=== PATIENT | male | born 1970 | race Two or more races ===

== ENCOUNTER 2018-07-16 22:27 | Emergency (ER) | payer OTHER ==
--- NOTE | 2018-07-16 22:50 | EDPHY ---
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 Patient has been having pain in his right neck with swelling which occurred over the last 12-18 hours. He is not having any difficulty swelling. Trach was last changed about 3 weeks ago by his physician in [place]. No fevers or chills. No cough. Is complaining some swelling in his right lateral anterior neck as well. He did take some Aleve about an hour ago. ROS: 10 systems were reviewed and were negative except those elements noted in the HPI. PMH: Recurrent epiglottis swelling, tracheostomy Social History: Positive smoking, no alcohol, Family History: non-contributory Physical Exam: Gen: Awake, Alert, No Distress HEENT: Nose: no rhinorrhea Eyes: PERRLA, EOMI Mouth: Moist mucosa Neck: Tracheostomy site is not erythematous her have any discharge. There is some mild right neck swelling along his sternocleidomastoid without fluctuance or mass. There is no erythema. No significant lymphadenopathy. Chest: nontender, lungs clear to auscultation Heart: S1, S2 normal, no murmur Abd: Soft, non-tender, no guarding Back: no CVA tenderness, no midline tenderness Ext: no edema, non-tender Skin: no rash Neuro: CN II-XII intact, Sensation grossly intact, Strength 5/5 in bilateral upper and lower extremities - Personal History Current Tetanus/Diphtheria Vaccine: Yes Current Tetanus Diphtheria and Acellular Pertussis (TDAP): Yes - Medical/Surgical History Hx Asthma: No Hx Chronic Respiratory Disease: No Hx Diabetes: No Hx Cardiac Disease: No Hx Renal Disease: No Hx Cirrhosis: No Hx Alcoholism: No Hx HIV/AIDS: No Hx Splenectomy or Spleen Trauma: No Other PMH: 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 hernia repair. finger tip amuputations - Social History Smoking Status: Current some day smoker Constitutional: Initial Vital Signs Temperature (C) 36.8 C 07/16/18 22:30 Heart Rate 94 07/16/18 22:30 Respiratory Rate 18 07/16/18 22:30 Blood Pressure 138/98 H 07/16/18 22:30 O2 Sat (%) 93 07/16/18 22:30 O2 Delivery Mode Room Air Allergies/Adverse Reactions: ibuprofen [From Motrin] Allergy (Verified 07/16/18 22:39) morphine Allergy (Verified 07/16/18 22:39) Home Medications: Medication Instructions Recorded Aleve 07/16/18 Medical Decision Making - Diagnostics Imaging Results: Imaging Impressions Neck CT 07/16/18 22:47 Impression: No localized inflammatory process or explanation for right-sided pain. Findings discussed with Emergency Department physician, Hernan Melchor MD at 07/16/2018 23:45. ED Course/Re-evaluation: CT scan soft tissue of the neck is negative for any acute process per Dr. Harris. Patient does have a difficult examination but no significant swelling or mass on exam. Patient is improved after some fentanyl. Will discharge with follow-up with his ear nose and throat physician for further evaluation. - Data Points Laboratory Results: Laboratory Results 07/16/18 23:00 07/16/18 07/16/18 23:02 23:00 WBC 9.61 10^3/uL H 10^3/uL (3.80-9.50) RBC 5.35 10^6/uL 10^6/uL (4.40-6.38) Hgb 16.7 g/dL g/dL (13.7-17.5) POC Hgb 16.7 gm/dL gm/dL (13.7-17.5) Hct 47.8 % % (40.0-51.0) POC Hct 49 % % (40-51) MCV 89.3 fL fL (81.5-99.8) MCH 31.2 pg pg (27.9-34.1) MCHC 34.9 g/dL g/dL (32.4-36.7) RDW 13.0 % % (11.5-15.2) Plt Count 317 10^3/uL 10^3/uL (150-400) MPV 9.6 fL fL (8.7-11.7) Neut % (Auto) 50.7 % % (39.3-74.2) Lymph % (Auto) 39.6 % % (15.0-45.0) [place] % (Auto) 7.9 % % (4.5-13.0) Eos % (Auto) 1.1 % % (0.6-7.6) Baso % (Auto) 0.4 % % (0.3-1.7) Nucleat RBC Rel Count 0.0 % % (0.0-0.2) Absolute Neuts (auto) 4.86 10^3/uL 10^3/uL (1.70-6.50) Absolute Lymphs (auto) 3.81 10^3/uL H 10^3/uL (1.00-3.00) Absolute Monos (auto) 0.76 10^3/uL 10^3/uL (0.30-0.80) Absolute Eos (auto) 0.11 10^3/uL 10^3/uL (0.03-0.40) Absolute Basos (auto) 0.04 10^3/uL 10^3/uL (0.02-0.10) Absolute Nucleated RBC 0.00 10^3/uL 10^3/uL (0-0.01) Immature Gran % 0.3 % % (0.0-1.1) Immature Gran # 0.03 10^3/uL 10^3/uL (0.00-0.10) Platelet Estimate ADEQUATE (ADEQ) POC Sodium 141 mEq/L mEq/L (135-145) POC Potassium 4.1 mEq/L mEq/L (3.3-5.0) POC Chloride 107 mEq/L mEq/L (97-110) POC BUN 22 mg/dL mg/dL (7-23) POC Creatinine 1.0 mg/dL mg/dL (0.7-1.3) POC Glucose 103 mg/dL H mg/dL (70-100) Medications Given: Discontinued Medications Fentanyl (Sublimaze) 50 mcg IVP EDNOW ONE Stop: 07/16/18 23:50 Last Admin: 07/16/18 23:50 Dose: 50 mcg Point of Care Test Results: Chemistry 07/16/18 23:02 POC Sodium 141 mEq/L mEq/L (135-145) POC Potassium 4.1 mEq/L mEq/L (3.3-5.0) POC Chloride 107 mEq/L mEq/L (97-110) POC BUN 22 mg/dL mg/dL (7-23) POC Creatinine 1.0 mg/dL mg/dL (0.7-1.3) POC Glucose 103 mg/dL H mg/dL (70-100) ISTAT H&H 07/16/18 23:02 POC Hgb 16.7 gm/dL gm/dL (13.7-17.5) POC Hct 49 % % (40-51) Departure - Departure Disposition: Home, Routine, Self-Care Clinical Impression: Neck pain Condition: Good Instructions: Neck Pain (ED) Additional Instructions: Follow up with your Ear Nose and Throat doctor in 2-3 days for re-evaluation. May take acetaminophen, 1000 mg 3 times a day as needed for pain. Return to the emergency depart for increasing swelling, difficulty swallowing, fevers or chills, or any other concerns. Referrals: NONE *PRIMARY CARE P,. [Primary Care Provider] - As per Instructions
[2018-07-16] MEDS ORDERED: IOPAMIDOL (ISOVUE-300) 100 ML BTL ONE (22:52)
[2018-07-16 23:34] LABS: PLATELET COUNT 317 10^3/uL (150-400)
[2018-07-16] MEDS ORDERED: fentaNYL 100 MCG/2 ML INJ ONE (23:48)
[2018-07-16] MEDS ORDERED: fentaNYL 100 MCG/2 ML INJ IVP ONE (23:49)
[2018-07-17] MEDS ORDERED: fentaNYL 100 MCG/2 ML INJ IVP ONE (00:27)
[2018-07-17] MEDS ORDERED: LIDOCAINE 4%/MENTHOL 1% PATCH TD ONE ×2 (00:29→00:31)
[2018-07-17 02:15] VITALS: BP 117/73
[2018-07-17] MEDS ORDERED: PATCH REMOVAL 1 EA PATCH TD SCH (21:00)
== END 2018-07-17 01:41 | disposition home or self-care (01) ==
DX: M54.2 Cervicalgia (principal); Z93.0 Tracheostomy status; Z87.19 Personal history of other diseases of the digestive system; F17.200 Nicotine dependence, unspecified, uncomplicated
CPT/HCPCS: 70491; 96374; 99285; J3010; Q9967; 82435-PO; 82565-PO; 82947-PO; 84132-PO; 84295-PO; 84520-PO; 85014-PO